=== PATIENT | female | born 1985 | race African-American/Black ===

== ENCOUNTER 2017-07-20 09:42 | Inpatient (IN) | payer OTHER, SELFPAY ==
[2017-07-20 09:54] LABS: Hematocrit 39.1 % (36.0-47.0); Red Blood Cell (RBC) Count 4.06 mill/uL (4.20-5.40); White Blood Cell (WBC) Count 5.4 thou/uL (4.8-10.8)
[2017-07-20 09:58] LABS: PTT 28.5 SEC (22.9-36.1)
[2017-07-20 10:03] LABS: Oxyhemoglobin 96.3 % (94.0-97.0); Sodium 143 mmol/L (135-148)
[2017-07-20 10:04] LABS: Mechanical Tidal Volume 500 ml; Mode AC; Vent YES
[2017-07-20 10:08] LABS: ALT (SGPT) 26 U/L (8-55); AST (SGOT) 40 U/L (5-34); Alkaline Phosphatase 47 U/L (40-150); Anion Gap 11 mmol/L (10-20); BUN (Urea Nitrogen) 8 mg/dL (7.0-18.7); Bilirubin, Total 0.4 mg/dL (0.2-1.2); Calc. Creatinine Clearance 0 mL/min (70-130); Calcium 9.1 mg/dL (7.8-10.44); Carbon Dioxide 20 mmol/L (22-29); Chloride 111 mmol/L (98-107); Estimated GFR-MDRD 84; Globulin 3.2 g/dL (2.4-3.5); Protein, Total 6.9 g/dL (6.0-8.3)
[2017-07-20 10:08] LABS: Bilirubin Negative (Negative); Blood, Urine Small (Negative); Glucose, Urine (Dipstick) Negative (Negative); Ketone, Urine Trace mg/dL (Negative); Nitrite Negative (Negative); Protein, Urine (Dipstick) 100 mg/dL (Neg-Trace)
[2017-07-20 10:12] LABS: Bacteria/HPF None Seen HPF (None Seen); Hyaline Casts/LPF 4-6 HYALINE CAST LPF (0-3 Hyaline); RBC/HPF 0-3 HPF (0-3); Squamous Epithelial 0-3 HPF (0-3); WBC/HPF 0-3 HPF (0-3)
[2017-07-20 10:18] LABS: Amphetamine Not Detected (NotDetected); Methadone Not Detected (NotDetected); Methamphetamine Not Detected (NotDetected)
[2017-07-20] MEDS ORDERED: Dextrose 50% Abboject 50 ML SYRINGE SLOW IVP PRN (10:21)
[2017-07-20] MEDS ORDERED: Ondansetron HCl/PF 4 MG/2 ML Vial IVP PRN (10:21)
[2017-07-20] MEDS ORDERED: Dextrose 5% in Water 1,000 ML IV PRN (10:21)
[2017-07-20] MEDS ORDERED: Ondansetron ODT 4 MG TAB PO PRN (10:21)
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
[2017-07-20] MEDS ORDERED: Propofol 500 MG/50 ML VIAL ONE (10:27)
[2017-07-20] MEDS ORDERED: Fentanyl 100 MCG/2 ML VIAL ONE ×2 (10:27→16:47)
[2017-07-20] MEDS ORDERED: Sedation Protocol FS ONE (10:33)
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
[2017-07-20 10:41] LABS: Band 3 % (5-11); Neutrophil 58 % (42-75)
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
[2017-07-20] MEDS ORDERED: Lorazepam 2 MG/ML VIAL SLOW IVP PRN (11:19)
[2017-07-20] MEDS ORDERED: Propofol 1,000 MG/100 ML VIAL IV PRN (11:19)
[2017-07-20] MEDS ORDERED: Fentanyl 20 MCG/ML 250 ML IVPB SCH (11:19)
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
--- NOTE | 2017-07-20 12:29 | RAD ---
RIGHT KNEE 4 VIEWS: HISTORY: Trauma, right knee pain. FINDINGS/IMPRESSION: No acute fracture or dislocation is identified. POS: [facility]
--- NOTE | 2017-07-20 12:37 | RAD ---
THREE VIEWS RIGHT ANKLE: History: Trauma. FINDINGS: AP, lateral, and oblique views of right ankle obtained. Images demonstrate fracture and dislocation of the right talus. This appears to be an open fracture with gas seen within the soft tissues and within the joint. There is posterior displacement of the distal tibia compared to the talus. The contours of the talus on the lateral view appear to be irregular and disrupted concerning for a talar fracture as well. IMPRESSION: 1. Right ankle joint open fracture and dislocation. 2. There appears to be an old poorly healed fracture off the distal aspect of the fifth right metata rsal. POS: [facility]
[2017-07-20] MEDS: hydrALAZINE 20 MG/ML VIAL SLOW IVP PRN (12:51)
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
[2017-07-20] MEDS ORDERED: ISOVUE-370 76%-LOCM 1 ML ONE (14:29)
[2017-07-20] MEDS ORDERED: CEFAZOLIN/Water 2 GM/20 ML SYRINGE SLOW IVP SCH (15:15)
[2017-07-20] MEDS ORDERED: Propofol 200 MG/20 ML VIAL ONE (16:41)
[2017-07-20] MEDS ORDERED: Fentanyl 250 MCG/5 ML VIAL ONE (17:31)
--- NOTE | 2017-07-20 18:35 | RAD ---
TWO VIEWS RIGHT ANKLE: 07/20/17 HISTORY: ORIF. COMPARISON: 07/20/17 at 9:50 hours. FINDINGS: There has been interval reduction in the previously noted talar dislocation. The tibiotalar joint is now normally aligned and talus is in normal positioning. No obvious fracture is seen on this exam. No other interval change. IMPRESSION: Interval reduction of previously noted dislocation at the ankle, and the talus now demonstrates norm al alignment with the distal tibia. POS: [facility]
[2017-07-20] MEDS: Sodium Chloride 0.9% 1,000 ML IV SCH (18:36)
[2017-07-20] MEDS: CEFAZOLIN/Water 2 GM/20 ML SYRINGE SLOW IVP SCH (18:40)
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
[2017-07-21] MEDS: CEFAZOLIN/Water 2 GM/20 ML SYRINGE SLOW IVP SCH ×3 (00:53→16:37)
[2017-07-21] MEDS: Sodium Chloride 0.9% 1,000 ML IV SCH ×3 (02:31→19:54)
[2017-07-21 04:47] LABS: Anion Gap 13 mmol/L (10-20); BUN (Urea Nitrogen) 7 mg/dL (7.0-18.7); Calc. Creatinine Clearance 119 mL/min (70-130); Calcium 8.4 mg/dL (7.8-10.44); Carbon Dioxide 20 mmol/L (22-29); Chloride 113 mmol/L (98-107); Estimated GFR-MDRD Greater than 90; Magnesium 1.5 mg/dL (1.6-2.6); Phosphorus 2.7 mg/dL (2.3-4.7)
[2017-07-21 04:53] LABS: #Lymphocytes 0.8 thou/uL (1.20-3.40); #Monocytes 1.3 thou/uL (0.11-0.59); #Neutrophils 9.2 thou/uL (1.40-6.50); %Basophils 0.3 % (0.0-1.0); %Eosinophils 0.1 % (0.0-10.0); %Lymphocytes 7.1 % (21.0-51.0); %Monocytes 11.4 % (0.0-10.0); Hematocrit 31.2 % (36.0-47.0); Mean Platelet Volume 9.5 fL (7.4-10.4); Red Blood Cell (RBC) Count 3.19 mill/uL (4.20-5.40); White Blood Cell (WBC) Count 11.4 thou/uL (4.8-10.8)
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
--- NOTE | 2017-07-21 07:38 | CT ---
PRELIMINARY REPORT/[facility]/EMERGENCY AFTER HOURS PROCEDURE: EXAM: CT Head Without Intravenous Contrast CLINICAL HISTORY: 32 years old, female; Condition or disease; Other: F/u tbi TECHNIQUE: Axial computed tomography images of the head/brain without intravenous contrast. COMPARISON: CT Brain WO Con 07/20/2017 10:03:08 AM FINDINGS: Brain: No acute stroke. Significant improvement in volume of bilateral subarachnoid hemorrhage. Hemorrhage layering along the cerebellar tentorium has also improved. No significant white matter di sease. No edema. Ventricles: No acute findings. No ventriculomegaly. Bones/joints: No acute findings. No acute fracture. Soft tissues: No acute findings. Sinuses: Unremarkable as visualized. No acute sinusitis. Mastoid air cells: Unremarkable as visualized. No mastoid effusion. IMPRESSION: Improving hemorrhage as described. No acute stroke. No hydrocephalus or herniation. Thank you for allowing us to participate in the care of your patient. Dictated and Authenticated by: Bradly Sanchez MD 07/21/2017 4:24 AM Central Time ([place] \T\ [facility]) FINAL REPORT CT BRAIN WITHOUT CONTRAST I agree with the preliminary report given by Dr. Bradly Sanchez of [facility]. POS: [facility]
[2017-07-21] MEDS: Pantoprazole 40 MG VIAL IVP SCH (08:33)
[2017-07-21] MEDS ORDERED: Acetaminophen 1,000 MG in Premix Bag 1 BAG IVPB SCH (09:00)
[2017-07-21] MEDS ORDERED: [UNRECOGNIZED DRUG - OTHER] IVPB SCH (09:00)
[2017-07-21] MEDS ORDERED: POTASSIUM PHOSPHATE IVPB SCH (09:00)
[2017-07-21] MEDS ORDERED: MAGNESIUM SULFATE IVPB SCH (09:00)
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
[2017-07-21] MEDS: hydrALAZINE 20 MG/ML VIAL SLOW IVP PRN ×4 (11:40→23:36)
[2017-07-21] MEDS ORDERED: Acetaminophen 500 MG TAB PO SCH (12:00)
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
[2017-07-21] MEDS: Acetaminophen 1,000 MG in Premix Bag 1 BAG IVPB SCH ×2 (16:37→23:36)
[2017-07-21] MEDS: traMADol HCl 50 MG TAB PO PRN (21:20)
[2017-07-22] MEDS: CEFAZOLIN/Water 2 GM/20 ML SYRINGE SLOW IVP SCH ×3 (01:04→18:03)
[2017-07-22] MEDS: hydrALAZINE 20 MG/ML VIAL SLOW IVP PRN (04:00)
[2017-07-22] MEDS: traMADol HCl 50 MG TAB PO PRN (04:35)
[2017-07-22] MEDS: Acetaminophen 1,000 MG in Premix Bag 1 BAG IVPB SCH ×3 (07:00→18:20)
[2017-07-22] MEDS: Pantoprazole 40 MG VIAL IVP SCH (09:11)
--- NOTE | 2017-07-22 11:34 | RAD ---
SINGLE VIEW OF ABDOMEN: Date: 07/22/17 HISTORY: Dobbhoff tube placement. FINDINGS: Single view of the abdomen shows a nonspecific, nonobstructed bowel gas pattern. A Dobbhoff tube is seen in the stomach. No suspicious calcifications are present. IMPRESSION: Dobbhoff tube located in the stomach. POS: [facility]
[2017-07-22] MEDS: Sodium Chloride 0.9% 1,000 ML IV SCH ×3 (12:34→23:04)
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
[2017-07-23] MEDS: CEFAZOLIN/Water 2 GM/20 ML SYRINGE SLOW IVP SCH ×3 (00:31→16:44)
[2017-07-23] MEDS: Sodium Chloride 0.9% 1,000 ML IV SCH ×3 (05:03→22:54)
[2017-07-23 05:35] LABS: #Eosinphils 0.1 thou/uL (0.0-0.7); #Lymphocytes 0.8 thou/uL (1.20-3.40); #Monocytes 0.7 thou/uL (0.11-0.59); #Neutrophils 6.5 thou/uL (1.40-6.50); %Basophils 0.4 % (0.0-1.0); %Eosinophils 0.6 % (0.0-10.0); %Lymphocytes 9.6 % (21.0-51.0); %Monocytes 8.4 % (0.0-10.0); Hematocrit 28.8 % (36.0-47.0); White Blood Cell (WBC) Count 8.1 thou/uL (4.8-10.8)
[2017-07-23 05:48] LABS: Anion Gap 7 mmol/L (10-20); BUN (Urea Nitrogen) 10 mg/dL (7.0-18.7); Calc. Creatinine Clearance 132 mL/min (70-130); Calcium 8.6 mg/dL (7.8-10.44); Carbon Dioxide 25 mmol/L (22-29); Chloride 113 mmol/L (98-107); Estimated GFR-MDRD Greater than 90; Magnesium 1.9 mg/dL (1.6-2.6)
[2017-07-23 05:55] LABS: Phosphorus 1.1 mg/dL (2.3-4.7)
[2017-07-23] MEDS ORDERED: Potassium Phosphate 30 MMOL in Sodium Chloride 0.9% 500 ML IVPB SCH (06:15)
[2017-07-23] MEDS ORDERED: CEFAZOLIN/Water 2 GM/20 ML SYRINGE SLOW IVP SCH (08:30)
[2017-07-23] MEDS: Pantoprazole 40 MG VIAL IVP SCH (08:59)
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
[2017-07-23] MEDS ORDERED: Acetaminophen 1,000 MG in Premix Bag 1 BAG IVPB SCH (13:30)
[2017-07-23] MEDS: hydrALAZINE 20 MG/ML VIAL SLOW IVP PRN (15:26)
[2017-07-23] MEDS: traMADol HCl 50 MG TAB PO SCH ×2 (15:50→23:57)
[2017-07-23] MEDS: Acetaminophen 1,000 MG in Premix Bag 1 BAG IVPB SCH ×4 (17:21→23:56)
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
[2017-07-24] MEDS: CEFAZOLIN/Water 2 GM/20 ML SYRINGE SLOW IVP SCH ×3 (01:30→17:06)
[2017-07-24] MEDS: traMADol HCl 50 MG TAB PO PRN ×2 (01:44→08:25)
[2017-07-24] MEDS: Acetaminophen 1,000 MG in Premix Bag 1 BAG IVPB SCH ×4 (05:37→17:06)
[2017-07-24] MEDS: traMADol HCl 50 MG TAB PO SCH ×3 (05:48→17:07)
[2017-07-24] MEDS: Sodium Chloride 0.9% 1,000 ML IV SCH ×3 (05:48→17:06)
[2017-07-24] MEDS: hydrALAZINE 20 MG/ML VIAL SLOW IVP PRN ×2 (06:06→08:31)
--- NOTE | 2017-07-24 06:46 | PRG ---
DATE OF SERVICE: 07/24/2017 Ms. Mccauley was transferred out of the ICU over the weekend. She is extubated. I am seeing in her hospital room this morning. She still complains of diplopia and some right-sided weakness. On examination her internuclear ophthalmoparesis has improved significantly, but is not completely g one. She has right hemiparesis that is worse in the leg than the arm, but that side is moving. She will need extensive inpatient rehabilitation in my view. From a neurosurgical perspective, I do no t plan any surgical intervention.
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
[2017-07-24] MEDS: Pantoprazole 40 MG VIAL IVP SCH (08:21)
[2017-07-24 08:57] LABS: #Eosinphils 0.1 thou/uL (0.0-0.7); #Neutrophils 9.2 thou/uL (1.40-6.50); %Basophils 0.3 % (0.0-1.0); %Eosinophils 0.5 % (0.0-10.0); %Monocytes 8.6 % (0.0-10.0); Hematocrit 30.5 % (36.0-47.0); Mean Platelet Volume 8.6 fL (7.4-10.4); Red Blood Cell (RBC) Count 3.16 mill/uL (4.20-5.40); White Blood Cell (WBC) Count 11.2 thou/uL (4.8-10.8)
[2017-07-24 09:17] LABS: Anion Gap 11 mmol/L (10-20); BUN (Urea Nitrogen) 6 mg/dL (7.0-18.7); Calc. Creatinine Clearance 143 mL/min (70-130); Calcium 8.9 mg/dL (7.8-10.44); Carbon Dioxide 23 mmol/L (22-29); Chloride 108 mmol/L (98-107); Estimated GFR-MDRD Greater than 90; Magnesium 1.6 mg/dL (1.6-2.6); Phosphorus 2.8 mg/dL (2.3-4.7)
[2017-07-24] MEDS ORDERED: Morphine 2 MG/ML SYRINGE SLOW IVP SCH (10:30)
[2017-07-24] MEDS ORDERED: Fentanyl 250 MCG/5 ML VIAL ONE (10:56)
[2017-07-24] MEDS ORDERED: Midazolam HCl 2 mg/2 ml Vial ONE ×2 (10:56→15:37)
[2017-07-24] MEDS ORDERED: levETIRAcetam 500 MG/100 ML PREMIX BAG ONE (11:50)
[2017-07-24] MEDS ORDERED: Propofol 200 MG/20 ML VIAL ONE (12:11)
[2017-07-24] MEDS ORDERED: PHENYLEPHRINE-NS 100 MCG/ML 10 ML SYRINGE ONE (12:11)
[2017-07-24] MEDS ORDERED: Labetalol HCl 100 MG/20 ML SYR ONE (12:11)
[2017-07-24] MEDS ORDERED: Lidocaine 1% PF 5 ML VIAL ONE (12:11)
[2017-07-24] MEDS ORDERED: HYDROmorphone 2 MG/ML VIAL SLOW IVP PRN (12:41)
[2017-07-24] MEDS ORDERED: Meperidine HCl/PF 25 MG/ML VIAL SLOW IVP PRN (12:41)
[2017-07-24] MEDS ORDERED: Promethazine HCl 25 MG/ML VIAL SLOW IVP PRN (12:41)
[2017-07-24] MEDS ORDERED: Labetalol HCl 100 MG/20 ML VIAL SLOW IVP PRN (12:41)
[2017-07-24] MEDS ORDERED: Morphine Sulfate 2 MG/ML SYRINGE SLOW IVP PRN (12:41)
[2017-07-24] MEDS ORDERED: Fentanyl 100 MCG/2 ML VIAL ONE (15:37)
[2017-07-24] MEDS ORDERED: Fentanyl 100 MCG/2 ML VIAL SLOW IVP SCH (16:00)
--- NOTE | 2017-07-24 16:38 | RAD ---
RIGHT HIP: 07/24/17 Three views. Three fluoroscopic views presented from OR. IMPRESSION: Open reduction and internal fixation right hip with intraoperative imaging. These exams demonstrate plate and screws transfixing the right acetabulum. POS: [facility]
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
[2017-07-24] MEDS: Oxymetazoline HCl 0.05% ( 15 ML ) NASAL SCH (22:00)
[2017-07-25] MEDS: CEFAZOLIN/Water 2 GM/20 ML SYRINGE SLOW IVP SCH ×3 (00:23→17:59)
[2017-07-25] MEDS: traMADol HCl 50 MG TAB PO SCH ×4 (00:23→17:59)
[2017-07-25] MEDS: Sodium Chloride 0.9% 1,000 ML IV SCH ×2 (00:24→22:41)
--- NOTE | 2017-07-25 07:48 | PRG ---
DATE OF SERVICE: 07/25/2017 SUBJECTIVE: Ms. Mccauley is a 32-year-old female who I saw in her ICU room this morning. Yesterday , she had a right posterior wall acetabular fracture, internal fixation of the acetabulum. She also had bronchial washing with Dr. Keith and the preliminary report is pending. Her vital signs have b een stable overnight. On exam this morning, there are no new neurologic deficits. She was extubate d after her procedure yesterday. She answers my questions this morning and follow commands. She is GCS 15. Her potassium this morning is 3.4, chloride is 108, BUN 6, and creatinine 0.59. She can c ontinue to work with physical therapy today. If there are any further questions, please feel free t o contact Neurosurgery.
[2017-07-25] MEDS ORDERED: Furosemide 20 MG/2 ML VIAL SLOW IVP SCH (08:45)
--- NOTE | 2017-07-25 09:27 | PRG ---
DATE OF SERVICE: 07/25/2017 SUBJECTIVE: Ms. Mccauley was taken to the operating room yesterday to affix her hip fracture and is in the ICU for observation overnight since surgery. This morning, she is more awake than she has felecia messer in the past. She answers my questions with a word or two. She has six nerve weakness now, whic h is generally the opposite of her preexisting internuclear ophthalmoparesis. She does have a mild right hemiparesis, especially affecting the leg, I believe her neurological deficits from shear inju ry. Her any bleeding she has is likely to go away on its own. She continues her gradual neurologic al improvement, then will need inpatient rehabilitation to give her the best chance of regaining the strength and mobility she needs for the future. She does not require neurosurgical intervention. When she is out of the ICU today, we will sign off and be available for questions later in her hospi avi stay if needed.
[2017-07-25] MEDS: cefTRIAXone\\ROCEPHIN 2 GM in Sodium Chloride 0.9% 100 ML IVPB SCH (10:30)
[2017-07-25] MEDS: Pantoprazole 40 MG VIAL IVP SCH (10:30)
[2017-07-25] MEDS: Oxymetazoline HCl 0.05% ( 15 ML ) NASAL SCH ×2 (10:31→20:58)
[2017-07-25] MEDS: Acetaminophen 500 MG TAB PER TUBE SCH ×3 (10:32→20:59)
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
[2017-07-25] MEDS: traMADol HCl 50 MG TAB PO PRN (11:51)
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
[2017-07-25] MEDS: SMX/TMP 800-160mg/20 ML UDCUP PO SCH (20:58)
[2017-07-26] MEDS: traMADol HCl 50 MG TAB PO SCH ×5 (00:23→23:38)
[2017-07-26] MEDS: CEFAZOLIN/Water 2 GM/20 ML SYRINGE SLOW IVP SCH ×3 (00:28→17:28)
[2017-07-26] MEDS: Acetaminophen 500 MG TAB PER TUBE SCH ×4 (03:34→20:24)
[2017-07-26 06:26] LABS: #Eosinphils 0.2 thou/uL (0.0-0.7); #Lymphocytes 1.1 thou/uL (1.20-3.40); #Monocytes 1.1 thou/uL (0.11-0.59); #Neutrophils 8.8 thou/uL (1.40-6.50); %Basophils 0.3 % (0.0-1.0); %Eosinophils 1.4 % (0.0-10.0); %Lymphocytes 10.1 % (21.0-51.0); %Monocytes 9.9 % (0.0-10.0); Hematocrit 25.5 % (36.0-47.0); Mean Platelet Volume 8.9 fL (7.4-10.4); Red Blood Cell (RBC) Count 2.64 mill/uL (4.20-5.40); White Blood Cell (WBC) Count 11.3 thou/uL (4.8-10.8)
[2017-07-26 06:37] LABS: Anion Gap 9 mmol/L (10-20); BUN (Urea Nitrogen) 13 mg/dL (7.0-18.7); Calc. Creatinine Clearance 145 mL/min (70-130); Calcium 9.1 mg/dL (7.8-10.44); Carbon Dioxide 30 mmol/L (22-29); Chloride 105 mmol/L (98-107); Estimated GFR-MDRD Greater than 90; Magnesium 1.7 mg/dL (1.6-2.6); Phosphorus 2.5 mg/dL (2.3-4.7)
--- NOTE | 2017-07-26 07:32 | PRG ---
DATE OF SERVICE: 07/26/2017 SUBJECTIVE: Ms. Mccauley is a 32-year-old female, who I saw in her room this morning. Overnight, h er vital signs have been stable. Her temperature has been mildly elevated at 99.9 at 5:00 a.m. this morning. LABORATORY DATA: Her labs show a white blood cell count of 11.3, hemoglobin of 8.2, hematocrit of 2 5.5. Potassium 3.4, creatinine 0.58, and glucose is 142. On her neuro exam, there are no new acute findings. She is able to answer my questions appropriatel y and follow my commands. She is able to move her upper and lower extremities bilaterally. She con tinued to work with physical therapy today in rehab for her right leg. If there are any further que stions, please feel free to contact Neurosurgery.
[2017-07-26] MEDS ORDERED: Potassium Phosphate 30 MMOL, Magnesium Sulfate 4 GM in Sodium Chloride 0.9% 250 ML 250 ML IVPB SCH (08:15)
[2017-07-26] MEDS ORDERED: Bisacodyl 10 MG SUPP PR SCH (08:15)
[2017-07-26] MEDS ORDERED: Potassium Chloride 40 MEQ in Premix Bag 1 BAG IVPB SCH (08:15)
[2017-07-26] MEDS: Pantoprazole 40 MG VIAL IVP SCH (09:04)
[2017-07-26] MEDS: cefTRIAXone\\ROCEPHIN 2 GM in Sodium Chloride 0.9% 100 ML IVPB SCH (09:05)
[2017-07-26] MEDS: SMX/TMP 800-160mg/20 ML UDCUP PO SCH ×2 (09:06→20:24)
[2017-07-26] MEDS: Oxymetazoline HCl 0.05% ( 15 ML ) NASAL SCH ×2 (09:06→20:24)
[2017-07-26] MEDS: Senokot S 8.6-50 MG TAB PO SCH ×2 (09:14→20:24)
[2017-07-26] MEDS: Polyethylene Glycol 3350 17 GM Packet PO SCH (09:14)
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
--- NOTE | 2017-07-26 13:08 | ULT ---
BILATERAL LOWER EXTREMITY VENOUS DUPLEX STUDY: Deep veins of both lower extremities evaluated with ultrasound and Doppler. Color Doppler with spec tral analysis and compression studies performed. HISTORY: Lower extremity pain and edema. Assess for DVT. FINDINGS: There are bandages on the right lower quadrant and this inhibits adequate evaluation of the distal r ight lower extremity below the knee. Visualized deep veins on the right include common femoral vein, femoral vine, profunda vein, greater saphenous vein, and popliteal vein. These veins show normal compression and blood flow. The visua lized deep veins of the left lower extremity all show normal compression and blood flow including th e left posterior tibial vein. IMPRESSION: No evidence of deep vein thrombosis in either lower extremity. The distal right lower extremity is not completely evaluated due to bandage material inhibiting evaluation. POS: CARLOS
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
[2017-07-27] MEDS: CEFAZOLIN/Water 2 GM/20 ML SYRINGE SLOW IVP SCH ×3 (00:11→18:04)
[2017-07-27] MEDS: Acetaminophen 500 MG TAB PER TUBE SCH ×4 (03:01→20:54)
[2017-07-27] MEDS: traMADol HCl 50 MG TAB PO SCH ×3 (06:01→18:05)
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
[2017-07-27] MEDS: SMX/TMP 800-160mg/20 ML UDCUP PO SCH ×2 (08:25→20:54)
[2017-07-27] MEDS: Senokot S 8.6-50 MG TAB PO SCH ×2 (08:26→20:54)
[2017-07-27] MEDS: cefTRIAXone\\ROCEPHIN 2 GM in Sodium Chloride 0.9% 100 ML IVPB SCH (08:27)
[2017-07-27] MEDS: Pantoprazole 40 MG VIAL IVP SCH (08:27)
[2017-07-27] MEDS: Oxymetazoline HCl 0.05% ( 15 ML ) NASAL SCH (08:28)
[2017-07-27] MEDS: Polyethylene Glycol 3350 17 GM Packet PO SCH (09:07)
[2017-07-27] MEDS ORDERED: Iopamidol 370 76% 50 ML VIAL FS ONE (13:18)
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
[2017-07-28] MEDS: traMADol HCl 50 MG TAB PO SCH ×4 (00:01→16:49)
[2017-07-28] MEDS: CEFAZOLIN/Water 2 GM/20 ML SYRINGE SLOW IVP SCH ×3 (01:01→16:48)
[2017-07-28] MEDS: Acetaminophen 500 MG TAB PER TUBE SCH ×4 (03:19→21:26)
[2017-07-28] MEDS: Pantoprazole 40 MG VIAL IVP SCH (09:29)
[2017-07-28] MEDS: Polyethylene Glycol 3350 17 GM Packet PO SCH (09:29)
[2017-07-28] MEDS: Senokot S 8.6-50 MG TAB PO SCH ×2 (09:29→21:26)
[2017-07-28] MEDS: SMX/TMP 800-160mg/20 ML UDCUP PO SCH ×2 (09:30→21:27)
[2017-07-28] MEDS: cefTRIAXone\\ROCEPHIN 2 GM, Admixture Fee 1 EACH in Sodium Chloride 0.9% 100 ML IVPB SCH (12:39)
[2017-07-28] MEDS ORDERED: levETIRAcetam 500 MG/100 ML PREMIX BAG ONE (15:39)
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
[2017-07-29] MEDS: CEFAZOLIN/Water 2 GM/20 ML SYRINGE SLOW IVP SCH ×3 (00:12→17:09)
[2017-07-29] MEDS: traMADol HCl 50 MG TAB PO SCH ×4 (02:24→17:08)
[2017-07-29] MEDS: Acetaminophen 500 MG TAB PER TUBE SCH ×4 (03:18→20:58)
[2017-07-29 06:42] LABS: Anion Gap 9 mmol/L (10-20); BUN (Urea Nitrogen) 8 mg/dL (7.0-18.7); Calc. Creatinine Clearance 138 mL/min (70-130); Calcium 9.6 mg/dL (7.8-10.44); Carbon Dioxide 28 mmol/L (22-29); Chloride 102 mmol/L (98-107); Estimated GFR-MDRD Greater than 90; Magnesium 1.6 mg/dL (1.6-2.6); Phosphorus 4.3 mg/dL (2.3-4.7)
[2017-07-29] MEDS: Ascorbic Acid 500 mg Chewable Tablet PO SCH ×2 (09:34→20:58)
[2017-07-29] MEDS: Ferrous Sulfate 325 MG TAB PO SCH ×2 (09:34→17:08)
[2017-07-29] MEDS: cefTRIAXone\\ROCEPHIN 2 GM, Admixture Fee 1 EACH in Sodium Chloride 0.9% 100 ML IVPB SCH (09:35)
[2017-07-29] MEDS: Pantoprazole 40 MG VIAL IVP SCH (09:35)
[2017-07-29] MEDS: Senokot S 8.6-50 MG TAB PO SCH ×2 (09:36→20:58)
[2017-07-29] MEDS: SMX/TMP 800-160mg/20 ML UDCUP PO SCH ×2 (09:36→20:57)
[2017-07-29] MEDS: Polyethylene Glycol 3350 17 GM Packet PO SCH (09:36)
[2017-07-29] MEDS: traMADol HCl 50 MG TAB PO PRN ×2 (11:26→17:09)
[2017-07-29] MEDS: levETIRAcetam 500 MG TAB PO SCH (14:34)
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
[2017-07-30] MEDS: traMADol HCl 50 MG TAB PO SCH ×5 (00:05→23:17)
[2017-07-30] MEDS: CEFAZOLIN/Water 2 GM/20 ML SYRINGE SLOW IVP SCH (00:06)
--- OUTSIDE RECORDS SUMMARY | 2017-07-30 02:49 | XMS | Clinical Summary ---
:1985 Author Organization [facility] Address [address] [place] [address] Phone Care Team Providers Name Role Phone , Primary Care Provider Unavailable Allergies Not on File Current Medications Not on file Active Problems Not on file Social History Tobacco Use Types Packs/Day Years Used Date Never Assessed Sex Assigned at Date Recorded Not on file Last Filed Vital Signs Not on file Plan of Treatment Not on file Results Not on filefrom Last 3 Months
[2017-07-30] MEDS: Acetaminophen 500 MG TAB PER TUBE SCH ×4 (03:07→20:18)
[2017-07-30] MEDS: cefTRIAXone\\ROCEPHIN 2 GM, Admixture Fee 1 EACH in Sodium Chloride 0.9% 100 ML IVPB SCH (09:59)
[2017-07-30] MEDS: Pantoprazole 40 MG VIAL IVP SCH (09:59)
[2017-07-30] MEDS: Polyethylene Glycol 3350 17 GM Packet PO SCH (09:59)
[2017-07-30] MEDS: Ferrous Sulfate 325 MG TAB PO SCH ×2 (10:00→17:34)
[2017-07-30] MEDS: levETIRAcetam 500 MG TAB PO SCH ×2 (10:00→20:20)
[2017-07-30] MEDS: Senokot S 8.6-50 MG TAB PO SCH ×2 (10:00→20:20)
[2017-07-30] MEDS: Ascorbic Acid 500 mg Chewable Tablet PO SCH ×2 (10:00→20:18)
[2017-07-30] MEDS: SMX/TMP 800-160mg/20 ML UDCUP PO SCH ×2 (11:36→20:18)
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
[2017-07-31] MEDS: Acetaminophen 500 MG TAB PER TUBE SCH ×4 (02:56→21:06)
[2017-07-31] MEDS: traMADol HCl 50 MG TAB PO SCH ×3 (05:39→17:38)
[2017-07-31] MEDS: Ascorbic Acid 500 mg Chewable Tablet PO SCH ×2 (08:53→21:01)
[2017-07-31] MEDS: levETIRAcetam 500 MG TAB PO SCH ×2 (08:53→21:02)
[2017-07-31] MEDS: Pantoprazole 40 MG VIAL IVP SCH (08:54)
[2017-07-31] MEDS: cefTRIAXone\\ROCEPHIN 2 GM, Admixture Fee 1 EACH in Sodium Chloride 0.9% 100 ML IVPB SCH (08:54)
[2017-07-31] MEDS: SMX/TMP 800-160mg/20 ML UDCUP PO SCH ×2 (08:54→21:02)
[2017-07-31] MEDS: Polyethylene Glycol 3350 17 GM Packet PO SCH (08:54)
[2017-07-31] MEDS: Senokot S 8.6-50 MG TAB PO SCH ×2 (08:54→21:02)
[2017-07-31] MEDS: Ferrous Sulfate 325 MG TAB PO SCH ×2 (08:54→17:38)
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
[2017-07-31] MEDS: traMADol HCl 50 MG TAB PO PRN (15:23)
[2017-08-01] MEDS: traMADol HCl 50 MG TAB PO SCH ×4 (00:33→18:02)
[2017-08-01] MEDS: Acetaminophen 500 MG TAB PER TUBE SCH ×4 (03:33→20:36)
[2017-08-01 06:34] LABS: ALT (SGPT) 38 U/L (8-55); AST (SGOT) 31 U/L (5-34); Alkaline Phosphatase 81 U/L (40-150); Anion Gap 11 mmol/L (10-20); BUN (Urea Nitrogen) 12 mg/dL (7.0-18.7); Bilirubin, Total 0.4 mg/dL (0.2-1.2); Calc. Creatinine Clearance 106 mL/min (70-130); Calcium 10.6 mg/dL (7.8-10.44); Carbon Dioxide 29 mmol/L (22-29); Chloride 97 mmol/L (98-107); Estimated GFR-MDRD Greater than 90; Globulin 4.3 g/dL (2.4-3.5); Magnesium 1.8 mg/dL (1.6-2.6); Phosphorus 4.5 mg/dL (2.3-4.7); Protein, Total 7.8 g/dL (6.0-8.3)
[2017-08-01] MEDS: traMADol HCl 50 MG TAB PO PRN (08:44)
[2017-08-01] MEDS: Ascorbic Acid 500 mg Chewable Tablet PO SCH ×2 (08:44→20:36)
[2017-08-01] MEDS: SMX/TMP 800-160mg/20 ML UDCUP PO SCH (08:44)
[2017-08-01] MEDS: Senokot S 8.6-50 MG TAB PO SCH ×2 (08:46→20:36)
[2017-08-01] MEDS: Polyethylene Glycol 3350 17 GM Packet PO SCH (08:46)
[2017-08-01] MEDS: Ferrous Sulfate 325 MG TAB PO SCH ×2 (08:46→18:02)
[2017-08-01] MEDS: levETIRAcetam 500 MG TAB PO SCH ×2 (08:46→20:36)
[2017-08-01] MEDS: Sodium Chloride 1 GM TAB PO SCH ×2 (10:06→20:36)
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
[2017-08-02] MEDS: traMADol HCl 50 MG TAB PO SCH ×4 (00:20→17:21)
[2017-08-02] MEDS: Acetaminophen 500 MG TAB PER TUBE SCH ×3 (04:23→14:24)
[2017-08-02 06:57] LABS: Anion Gap 14 mmol/L (10-20); BUN (Urea Nitrogen) 11 mg/dL (7.0-18.7); Calc. Creatinine Clearance 108 mL/min (70-130); Calcium 10.4 mg/dL (7.8-10.44); Carbon Dioxide 27 mmol/L (22-29); Chloride 96 mmol/L (98-107); Estimated GFR-MDRD Greater than 90; Magnesium 1.7 mg/dL (1.6-2.6); Phosphorus 4.2 mg/dL (2.3-4.7)
[2017-08-02] MEDS: Polyethylene Glycol 3350 17 GM Packet PO SCH (08:56)
[2017-08-02] MEDS: Senokot S 8.6-50 MG TAB PO SCH (08:57)
[2017-08-02] MEDS: Ferrous Sulfate 325 MG TAB PO SCH ×2 (08:57→17:21)
[2017-08-02] MEDS: Sodium Chloride 1 GM TAB PO SCH (08:57)
[2017-08-02] MEDS: levETIRAcetam 500 MG TAB PO SCH (08:57)
[2017-08-02] MEDS: Ascorbic Acid 500 mg Chewable Tablet PO SCH (08:57)
[2017-08-02 12:21] VITALS: BMI 26.2
[2017-08-02 16:14] VITALS: BP 104/71; TEMP 98.2
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
== END 2017-08-02 19:10 | DRG 957 ==
LOC: ERS 09:42 → EEVIPCON 10:21 → CCU 10:21 → SURG A 07-22 17:28 → CCU 07-24 13:58 → SURG A 07-25 19:16
PROVIDERS: ADMIT Surgery; ATTEND Surgery
PROC: 0QSJ04Z Reposition Right Fibula with Internal Fixation Device, Open Approach (ICD-10-PCS; principal; 2017-07-20)
PROC: 0QSL04Z Reposition Right Tarsal with Internal Fixation Device, Open Approach (ICD-10-PCS; 2017-07-20)
PROC: 5A1945Z Respiratory Ventilation, 24-96 Consecutive Hours (ICD-10-PCS; 2017-07-20)
PROC: 0BH17EZ Insertion of Endotracheal Airway into Trachea, Via Natural or Artificial Opening (ICD-10-PCS; 2017-07-20)
PROC: 5A09557 Assistance with Respiratory Ventilation, Greater than 96 Consecutive Hours, Continuous Positive Airway Pressure (ICD-10-PCS; 2017-07-20)
PROC: 0BP1XDZ Removal of Intraluminal Device from Trachea, External Approach (ICD-10-PCS; 2017-07-22)
PROC: 0QS404Z Reposition Right Acetabulum with Internal Fixation Device, Open Approach (ICD-10-PCS; 2017-07-24)
PROC: 0BC68ZZ Extirpation of Matter from Right Lower Lobe Bronchus, Via Natural or Artificial Opening Endoscopic (ICD-10-PCS; 2017-07-24)
PROC: 06H03DZ Insertion of Intraluminal Device into Inferior Vena Cava, Percutaneous Approach (ICD-10-PCS; 2017-07-27)
DX: S92.101B Unspecified fracture of right talus, initial encounter for open fracture (principal); S32.401A Unspecified fracture of right acetabulum, initial encounter for closed fracture; S06.6X9A Traumatic subarachnoid hemorrhage with loss of consciousness of unspecified duration, initial encounter; J96.00 Acute respiratory failure, unspecified whether with hypoxia or hypercapnia; S36.032A Major laceration of spleen, initial encounter; T17.890A Other foreign object in other parts of respiratory tract causing asphyxiation, initial encounter; E87.1 Hypo-osmolality and hyponatremia; S06.5X9A Traumatic subdural hemorrhage with loss of consciousness of unspecified duration, initial encounter; S73.014A Posterior dislocation of right hip, initial encounter; D62 Acute posthemorrhagic anemia; E83.42 Hypomagnesemia; E87.6 Hypokalemia; E83.39 Other disorders of phosphorus metabolism; J01.90 Acute sinusitis, unspecified; R40.2433 Glasgow coma scale score 3-8, at hospital admission; T37.0X5A Adverse effect of sulfonamides, initial encounter; V43.62XA Car passenger injured in collision with other type car in traffic accident, initial encounter; Y92.410 Unspecified street and highway as the place of occurrence of the external cause; Y92.230 Patient room in hospital as the place of occurrence of the external cause
CPT/HCPCS: 27250; 36415; 37191; 51702; 70450; 71010; 71260; 72125; 72170; 74000; 74177; 76001; 76942; 77014; 77290; 77300; 77307; 77334; 77412; 77417; 80048; 80053; 80306; 81003; 81015; 82150; 82805; 83735; 84100; 84703; 85025; 85610; 85730; 86850; 86900; 86901; 87070; 87205; 90471; 93970; 94002; 94003; 96365; 96375; 99292; A4216; C1713; C1769; C9113; G0390; G8978-GP-CL; G8978-GP-CM; G8979-GP-CJ; G8979-GP-CK; G8987-GO-CM; G8988-GO-CK; G9165-GN-CM; G9166-GN-CJ; J0131; J0360; J0696; J1940; J1953; J2001; J2250; J2270; J2704; J3010; J3475; J7050; Q0162

== ENCOUNTER 2017-08-23 06:19 | Day surgery (SDC) | payer OTHER, SELFPAY ==
[2017-08-23] MEDS ORDERED: Fentanyl 100 MCG/2 ML VIAL ONE (09:03)
[2017-08-23] MEDS ORDERED: Midazolam HCl 2 mg/2 ml Vial ONE (09:03)
--- NOTE | 2017-08-23 10:48 | OP ---
PREPROCEDURE DIAGNOSIS: Multiple trauma patient for IVC filter removal. OFFICE NURSE PRACTITIONER: Dr. Beckham. KNUCKLE BENDER: Heather. POSTPROCEDURE DIAGNOSIS: Multiple trauma patient for IVC filter removal. ANESTHESIA: Local and intravenous sedation. PROCEDURES PERFORMED: 1. Ultrasound-guided access right common femoral vein. 2. IVC cavogram. 3. IVC filter removal. FINDINGS/INTERPRETATION: 1. Patent right and left common femoral veins with complete compressibility and no obvious filling defects. 2. Patent IVC filter and visualized IVC. DESCRIPTION OF PROCEDURE: The patient was taken to the angiography suite. She was prepped and draped in the usual sterile fashion. Ultrasound revealed wide patency of the right and left common femoral veins as described above. Intravenous sedation was achieved with a combination of 25 mcg of Fentanyl and 1 mg of Versed. At the proposed right groin access site, local anesthesia was achieved with 1% Xylocaine. Using ultrasound guidance, right common femoral vein was easily accessed with passage of the 5-[place] micropuncture guidewire and sheath. Dilator and guidewire were withdrawn. Table8son guidewire was passed. Micropuncture sheath was exchanged for the 8 [place] sheath. Initial IVC cavogram was performed. This demonstrated no filling defects within the filter or visualized IVC. The snare catheter was passed. Optease filter hook was secured. Sheath was advanced with satisfactory retrieval. Snared filter complex was removed. Sheath tip was withdrawn slightly. Completion IVC cavogram was performed. This demonstrated no contrast extravasation from the IVC. Sheath was removed and gentle pressure held. The patient appeared to tolerate the procedure without evident problems. TOTAL CONTRAST: 20 mL. FLUOROSCOPY TIME: 2.3 minutes. BLOOD LOSS: Negligible. [facility]
[2017-08-23] MEDS ORDERED: Iopamidol 370 76% 50 ML VIAL FS ONE (14:33)
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
== END 2017-08-23 13:10 | disposition home or self-care (01) ==
LOC: CCL 06:19
PROVIDERS: ATTEND Thoracic Surgery (Cardiothoracic Vascular Surgery)
PROC: 06PY3DZ Removal of Intraluminal Device from Lower Vein, Percutaneous Approach (ICD-10-PCS; principal; 2017-08-23)
DX: Z45.89 Encounter for adjustment and management of other implanted devices (principal); Z79.2 Long term (current) use of antibiotics; Z79.899 Other long term (current) drug therapy; Z98.890 Other specified postprocedural states; Z87.820 Personal history of traumatic brain injury
CPT/HCPCS: 37193; 76942; 93970; 99152; C1769; J1644; J2250; J3010

== ENCOUNTER 2017-12-25 13:19 | Outpatient (CLI) | payer OTHER ==
--- NOTE | 2017-12-25 14:55 | RAD ---
THREE VIEWS LUMBOSACRAL SPINE: Comparison: None. History: Low back pain. FINDINGS: Three views of the lumbosacral spine shows normal height and alignment of the vertebral bodies and in tervertebral discs without fracture or subluxation. No degenerative changes are seen. IMPRESSION: Unremarkable exam. POS: CARLOS
== END 2017-12-25 13:20 | disposition home or self-care (01) ==
LOC: RAD 13:19
DX: Z02.71 Encounter for disability determination (principal); M54.5 Low back pain
CPT/HCPCS: 72100

== ENCOUNTER 2019-03-12 10:51 | Emergency (ER) | payer MEDICAID, OTHER, SELFPAY ==
--- NOTE | 2019-03-12 11:26 | RAD ---
3 views left ankle. HISTORY: Left ankle pain. AP, lateral and oblique views left ankle obtained. 3 views left ankle demonstrate no evidence of left ankle fractures, subluxations or bony lesions. Impression: Normal 3 views left ankle.
[2019-03-12] MEDS ORDERED: Acetaminophen 500 MG TAB ONE (12:03)
== END 2019-03-12 13:00 | disposition home or self-care (01) ==
LOC: ERS 10:51
DX: M25.462 Effusion, left knee (principal); F41.9 Anxiety disorder, unspecified; I10 Essential (primary) hypertension; F32.9 Major depressive disorder, single episode, unspecified; Z87.891 Personal history of nicotine dependence; Z79.899 Other long term (current) drug therapy; W19.XXXA Unspecified fall, initial encounter
CPT/HCPCS: 29515